=== PATIENT | male | born 1950 | race Asian ===

== ENCOUNTER 2020-12-21 11:38 | Inpatient (IN) | payer OTHER ==
[2020-12-21] MEDS ORDERED: LACTATED RINGERS SOLUTION 1000 ML INFUS.BAG IV ONE ×2 (11:44→16:38)
[2020-12-21] MEDS ORDERED: FAMOTIDINE 20 MG/50 ML IVPB 20 MG/50 ML MG IVPB ONE ×2 (11:44→12:00)
[2020-12-21] MEDS ORDERED: ONDANSETRON 4 MG/2 ML VIAL IVPUSH ONE (11:46)
[2020-12-21] MEDS ORDERED: ONDANSETRON 4 MG/2 ML VIAL ONE (12:00)
[2020-12-21] MEDS ORDERED: ACETAMINOPHEN 1000 MG/100 ML VIAL (NON FORMULARY) IVPB ONE (12:08)
[2020-12-21] MEDS ORDERED: ACETAMINOPHEN INJECTION 100 ML IVPB ONE (12:15)
[2020-12-21 12:24] LABS: BASO % 0.2 % (0-2.0); EOS % 0.1 % (0-4.5); HEMATOCRIT 47.1 % (35.4-49); HEMOGLOBIN 16.2 GM/dL (11.7-16.9); LYMPH % 8.5 % (8-40); MCH 32.4 pg (25.7-33.7); MCHC 34.4 g/dl (32.0-35.9); MEAN CELL VOLUME 94.3 fl (80-96); MONO % 12.8 % (3.8-10.2); NEUT % 78.4 % (42.8-82.8); PLATELET COUNT 179 K/MM3 (134-434); RBC 4.99 M/mm3 (4.00-5.60); RDW 13.7 % (11.9-15.9); WHITE BLOOD COUNT 9.5 K/mm3 (4.0-10.0)
[2020-12-21 12:49] LABS: CHLORIDE 99 mmol/L (98-107); POTASSIUM 4.2 mmol/L (3.5-5.1); SODIUM 133 mmol/L (136-145)
[2020-12-21 12:52] LABS: ALBUMIN 3.7 g/dl (3.4-5.0); ANION GAP 6 MMOL/L (8-16); CO2 28 mmol/L (21-32); GLUCOSE,RANDOM 136 mg/dL (74-106); LIPASE 344 U/L (73-393)
[2020-12-21 12:55] LABS: CREATININE 1.1 mg/dL (0.55-1.3); SGOT/AST 219 U/L (15-37); SGPT/ALT 237 U/L (13-61)
[2020-12-21 12:56] LABS: BILIRUBIN,TOTAL 5.6 mg/dL (0.2-1)
[2020-12-21 12:58] LABS: ALK PHOS 398 U/L (45-117)
[2020-12-21] MEDS ORDERED: morphine CARPU-JECT 4 MG/1 ML DISP.SYRIN IVPUSH ONE (13:54)
[2020-12-21] MEDS ORDERED: morphine SULFATE 4 MG/ML VIAL ONE (14:06)
[2020-12-21] MEDS ORDERED: morphine CARPU-JECT 2 MG/1 ML DISP.SYRIN IVPUSH ONE (16:23)
[2020-12-21] MEDS ORDERED: MORPHINE SULFATE 2 MG/ML VIAL ONE ×2 (16:26→19:58)
[2020-12-21 18:01] LABS: INR 0.94 (0.83-1.09); PROTHROMBIN TIME (PATIENT) 11.6 SEC (9.7-13.0)
[2020-12-21 18:04] LABS: ACTIVATED PTT 29.3 SECONDS (25.2-36.5)
[2020-12-21] MEDS ORDERED: MORPHINE SULFATE 2 MG/ML VIAL IVPUSH PRN (18:17)
[2020-12-21] MEDS ORDERED: SODIUM CHLORIDE 1,000 ML IV SCH (18:30)
[2020-12-21] MEDS ORDERED: INSULIN SLIDING SCALE (NOVOLOG) 1 VIAL SQ SCH (22:00)
[2020-12-22 00:21] VITALS: BMI 21.7
[2020-12-22 08:17] LABS: HEMATOCRIT 44.8 % (35.4-49); HEMOGLOBIN 15.1 GM/dL (11.7-16.9); MCH 32.1 pg (25.7-33.7); MCHC 33.8 g/dl (32.0-35.9); MEAN CELL VOLUME 95.1 fl (80-96); PLATELET COUNT 175 K/MM3 (134-434); RDW 13.5 % (11.9-15.9); WHITE BLOOD COUNT 8.7 K/mm3 (4.0-10.0)
[2020-12-22 08:37] LABS: ALBUMIN 3.2 g/dl (3.4-5.0); BLOOD UREA NITROGEN 17.8 mg/dL (7-18); CALCIUM 8.9 mg/dL (8.5-10.1)
[2020-12-22 08:42] LABS: TOT PROT 6.8 g/dl (6.4-8.2)
[2020-12-22] MEDS ORDERED: ENOXAPARIN NA (PORCINE) 40 MG/0.4 ML DISP.SYRIN SQ SCH (10:00)
[2020-12-22 14:29] VITALS: PULSE 79
[2020-12-22 17:54] VITALS: BP 125/62; TEMP 98.8
== END 2020-12-22 21:00 | disposition short-term general hospital (02) | DRG 446 ==
LOC: JER 11:38 → JERBED 16:38 → J8W 23:05
PROVIDERS: ADMIT Internal Medicine; ATTEND Internal Medicine
DX: K80.50 Calculus of bile duct without cholangitis or cholecystitis without obstruction (principal); I10 Essential (primary) hypertension; E11.9 Type 2 diabetes mellitus without complications; E78.5 Hyperlipidemia, unspecified; R91.1 Solitary pulmonary nodule
CPT/HCPCS: 36415; 71045-TC-FY; 74177-TC; 76705-TC; 80053; 80307; 82962; 83605; 83690; 84484; 85025; 85027; 85610; 85730; 86705; 86708; 86850; 86900; 86901; 93005; 93010; 99285-25; C9803; J0131; Q9967; U0003

== ENCOUNTER 2021-10-05 13:29 | Emergency (ER) | payer OTHER ==
[2021-10-05 13:34] VITALS: BP 106/75; PULSE 85; TEMP 98.3; BMI 22.3
[2021-10-05] MEDS ORDERED: ACETAMINOPHEN 325 MG TABLET (FP) PO ONE (13:41)
[2021-10-05] MEDS ORDERED: ACETAMINOPHEN 325 MG TABLET (FP) ONE (13:44)
== END 2021-10-05 15:53 | disposition home or self-care (01) ==
LOC: JERFT 13:29
DX: M25.561 Pain in right knee (principal)
CPT/HCPCS: 73562-TC-RT-FY; 93971-TC; 99284-25

== ENCOUNTER 2023-01-25 18:58 | Emergency (ER) | payer OTHER ==
[2023-01-25 19:06] VITALS: BP 122/78; PULSE 67; RESP 20; TEMP 98.3; BMI 22.6
[2023-01-25] MEDS ORDERED: ACETAMINOPHEN 325 MG TABLET (FP) PO ONE (19:55)
[2023-01-25] MEDS ORDERED: ACETAMINOPHEN 325 MG TABLET (FP) ONE (19:59)
== END 2023-01-25 20:26 | disposition home or self-care (01) ==
LOC: JERFT 18:58
DX: R42 Dizziness and giddiness (principal); R51.9 Headache, unspecified; M54.2 Cervicalgia; V49.40XA Driver injured in collision with unspecified motor vehicles in traffic accident, initial encounter
CPT/HCPCS: 70450-TC; 71046-TC-FY; 71111-TC-FY; 72125-TC; 99284-25

== ENCOUNTER 2024-08-11 21:01 | Emergency (ER) | payer OTHER ==
[2024-08-11 21:15] VITALS: RESP 18; BMI 23.3
[2024-08-11] MEDS: MECLIZINE HCL 25 MG TABLET (FP) PO ONE ×2 (22:06→22:19)
[2024-08-11] MEDS ORDERED: MECLIZINE HCL 25 MG TABLET (FP) ONE (22:07)
[2024-08-11] MEDS: SODIUM CHLORIDE 0.9% 500 ML INFUS.BAG IV ONE (22:19)
[2024-08-11 22:23] LABS: BASO % 0.4 % (0-2.0); EOS % 1.3 % (0-4.5); HEMATOCRIT 44.6 % (35.4-49); HEMOGLOBIN 15.3 GM/dL (11.7-16.9); LYMPH % 32.2 % (8-40); MCH 32.4 pg (25.7-33.7); MCHC 34.3 g/dl (32.0-35.9); MEAN CELL VOLUME 94.6 fl (80-96); MEAN PLT VOLUME 7.2 fl (7.5-11.1); MONO % 10.8 % (3.8-10.2); NEUT % 55.3 % (42.8-82.8); PLATELET COUNT 152 10^3/uL (134-434); RBC 4.71 M/mm3 (4.00-5.60); RDW 13.5 % (11.9-15.9); WHITE BLOOD COUNT 6.1 K/mm3 (4.0-10.0)
[2024-08-11 23:03] LABS: POTASSIUM 4.1 mmol/L (3.5-5.1)
[2024-08-11 23:05] LABS: ALBUMIN 3.6 g/dl (3.4-5.0); BLOOD UREA NITROGEN 21.1 mg/dL (7-18); CALCIUM 8.7 mg/dL (8.5-10.1)
[2024-08-11 23:09] LABS: CREATININE 1.2 mg/dL (0.55-1.3)
[2024-08-11 23:10] LABS: BILIRUBIN,TOTAL 0.6 mg/dL (0.2-1); TOT PROT 6.8 g/dl (6.4-8.2)
[2024-08-12 00:30] VITALS: BP 106/78; PULSE 78; TEMP 98.1
== END 2024-08-12 00:30 | disposition home or self-care (01) ==
LOC: JER 21:01
DX: R42 Dizziness and giddiness (principal)
CPT/HCPCS: 36415; 70450-TC; 71046-TC-FY; 80053; 84484; 85025; 93005; 93010; 99285-25

== ENCOUNTER 2024-12-09 11:08 | Observation (INO) | payer OTHER ==
[2024-12-09 11:22] VITALS: BMI 21.4
[2024-12-09] MEDS ORDERED: METOCLOPRAMIDE HCL INJECTION 10 MG/2 ML VIAL ONE (11:38)
[2024-12-09] MEDS: SODIUM CHLORIDE 1,000 ML IV STA (12:00)
[2024-12-09] MEDS: METOCLOPRAMIDE HCL INJECTION 10 MG/2 ML VIAL IVPB ONE (12:01)
[2024-12-09 12:06] LABS: HEMATOCRIT 50.5 % (35.4-49); HEMOGLOBIN 16.3 GM/dL (11.7-16.9); LYMPH % 4.3 % (8-40); MCH 31.3 pg (25.7-33.7); MCHC 32.3 g/dl (32.0-35.9); MEAN PLT VOLUME 7.4 fl (7.5-11.1); NEUT % 89.7 % (42.8-82.8); PLATELET COUNT 172 10^3/uL (134-434); RBC 5.21 M/mm3 (4.00-5.60); RDW 13.3 % (11.9-15.9); WHITE BLOOD COUNT 11.8 K/mm3 (4.0-10.0)
[2024-12-09 12:26] LABS: INR 1.57 (0.83-1.09); PROTHROMBIN TIME (PATIENT) 17.5 SEC (9.7-13.0)
[2024-12-09 12:27] LABS: ACTIVATED PTT 33.7 SECONDS (25.2-36.5)
[2024-12-09 12:33] LABS: BLOOD UREA NITROGEN 20.2 mg/dL (7-18); CALCIUM 9.2 mg/dL (8.5-10.1); MAGNESIUM 2.1 mg/dL (1.8-2.4)
[2024-12-09 12:38] LABS: BILIRUBIN,TOTAL 0.8 mg/dL (0.2-1); TOT PROT 7.4 g/dl (6.4-8.2)
[2024-12-09 12:41] LABS: N-TERMINAL BNP 29.9 pg/ml (5-125)
[2024-12-09] MEDS: LACTATED RINGERS SOLUTION 1000 ML INFUS.BAG IV ONE (14:16)
[2024-12-09] MEDS ORDERED: diazePAM CARPU-JECT 10 MG/2 ML DISP.SYRIN ONE (15:47)
[2024-12-09] MEDS: diazePAM CARPU-JECT 10 MG/2 ML DISP.SYRIN IVPUSH ONE ×2 (16:08→17:25)
[2024-12-09] MEDS ORDERED: CYANOCOBALAMIN (VITAMIN B-12) 1000 MCG/1 ML VIAL ONE (19:56)
[2024-12-09] MEDS: CYANOCOBALAMIN (VITAMIN B-12) 1000 MCG/1 ML VIAL IM ONE (20:07)
[2024-12-09 20:08] VITALS: RESP 18
[2024-12-09] MEDS ORDERED: ONDANSETRON 4 MG/2 ML VIAL IVPUSH PRN (21:06)
[2024-12-09] MEDS: FOLIC ACID INJECTION - 1 MG, THIAMINE HCL 100 MG, MULTIVIT INJECTION ADULT 10 ML in SOD... IVPB ONE (21:48)
[2024-12-09] MEDS ORDERED: MECLIZINE HCL 25 MG TABLET (FP) ONE (22:26)
[2024-12-09] MEDS: MECLIZINE HCL 25 MG TABLET (FP) PO SCH (22:29)
[2024-12-10 07:09] VITALS: TEMP 97.3
[2024-12-10] MEDS ORDERED: PATIENT'S OWN MEDICATION (NON-FORMULARY) (Icosapent Ethyl [Vascepa] 1 GM Capsule) PO SCH (10:00)
[2024-12-10 10:26] LABS: HEMATOCRIT 44.4 % (35.4-49); HEMOGLOBIN 14.5 GM/dL (11.7-16.9); MCH 31.7 pg (25.7-33.7); MCHC 32.6 g/dl (32.0-35.9); MEAN CELL VOLUME 97.2 fl (80-96); MEAN PLT VOLUME 7.4 fl (7.5-11.1); PLATELET COUNT 169 10^3/uL (134-434); RBC 4.57 M/mm3 (4.00-5.60); RDW 13.3 % (11.9-15.9); WHITE BLOOD COUNT 7.2 K/mm3 (4.0-10.0)
[2024-12-10] MEDS: INSULIN ASPART SLIDING SCALE (NOVOLOG) 1 VIAL SQ SCH (10:27)
[2024-12-10 10:37] LABS: POTASSIUM 3.8 mmol/L (3.5-5.1)
[2024-12-10 10:39] LABS: CALCIUM 8.7 mg/dL (8.5-10.1); MAGNESIUM 2.1 mg/dL (1.8-2.4)
[2024-12-10 10:43] LABS: PHOSPHOROUS 2.5 mg/dL (2.5-4.9)
[2024-12-10 10:47] LABS: BLOOD UREA NITROGEN 21.7 mg/dL (7-18)
[2024-12-10] MEDS ORDERED: ATENOLOL 50 MG TABLET (FP) ONE (10:55)
[2024-12-10] MEDS ORDERED: MECLIZINE HCL 25 MG TABLET (FP) ONE (10:55)
[2024-12-10] MEDS: ATENOLOL 25 MG TABLET (FP) PO SCH (11:05)
[2024-12-10] MEDS: EMPAGLIFLOZIN (JARDIANCE) 25 MG TABLET PO SCH (11:05)
[2024-12-10 14:15] VITALS: BP 95/55; PULSE 86
[2024-12-10] MEDS ORDERED: RIVAROXABAN 20 MG TABLET PO SCH (18:00)
== END 2024-12-10 14:30 | disposition home or self-care (01) ==
LOC: JER 11:08 → JERBED 19:41
PROVIDERS: ADMIT Internal Medicine; ATTEND Internal Medicine
PROC: 3E023GC Introduction of Other Therapeutic Substance into Muscle, Percutaneous Approach (ICD-10-PCS; principal; 2024-12-09)
PROC: 3E033NZ Introduction of Analgesics, Hypnotics, Sedatives into Peripheral Vein, Percutaneous Approach (ICD-10-PCS; 2024-12-09)
PROC: 3E033GC Introduction of Other Therapeutic Substance into Peripheral Vein, Percutaneous Approach (ICD-10-PCS; 2024-12-09)
PROC: 3E013VG Introduction of Insulin into Subcutaneous Tissue, Percutaneous Approach (ICD-10-PCS; 2024-12-09)
PROC: 3E0337Z Introduction of Electrolytic and Water Balance Substance into Peripheral Vein, Percutaneous Approach (ICD-10-PCS; 2024-12-09)
DX: H81.10 Benign paroxysmal vertigo, unspecified ear (principal); R73.03 Prediabetes; I10 Essential (primary) hypertension; E78.00 Pure hypercholesterolemia, unspecified; I48.91 Unspecified atrial fibrillation; Z79.01 Long term (current) use of anticoagulants; Z87.891 Personal history of nicotine dependence; Z90.49 Acquired absence of other specified parts of digestive tract
CPT/HCPCS: 0241U-QW; 36415; 70551-TC; 71045-TC-FY; 80048; 80053; 82962; 83036; 83735; 83880; 84100; 84484; 85025; 85027; 85610; 85730; 86850; 86900; 86901; 87633; 93005; 93010; 96361; 96365; 96372; 96375; 99285-25; G0378